=== PATIENT | female | born 1945 | race Caucasian/White ===

== ENCOUNTER 2022-02-14 17:20 | Inpatient (IN) | payer MEDICARE ==
[~2022-02-14] VITALS: Ht 162.6 cm; Wt 60.4 kg
--- NOTE | ~2022-02-14 | DS ---
[facility] [address], [place] [address] Draft ADMISSION DATE: 02/14/2022 DISCHARGE DATE: 02/21/2022 REASON FOR ADMISSION: This 77-year-old white woman is from [place], [place], has numerous medical problems most dominantly those related to underlying COPD. She has not previously been home oxygen-dependent. The patient was visiting her son in the [place] area and had the onset of cough that was persistent with sudden left-sided abdominal pain and ultimately extreme dyspnea. The patient was evaluated in the emergency room by Dr. Andujar showing her to have on chest x-ray a sizable pneumothorax. She is admitted for further action and care. PERTINENT PHYSICAL EXAMINATION: GENERAL: Showed a thin white woman, who is chronically ill. VITAL SIGNS: O2 saturation on room air was 95% with 2 L nasal cannula oxygen. NECK: She had no cervical adenopathy or thyromegaly or jugular venous distention. No tracheal deviation. CHEST: Shows diminished breath sounds on the left side. ABDOMEN: Nondistended. EXTREMITIES: Showed mild clubbing without cyanosis. LABORATORY STUDIES: Showed a white count of 6.4, hematocrit 39.3, platelets 303,000. Chem profile was normal. HOSPITAL COURSE: She was noted to have a very large left spontaneous pneumothorax. No doubt related to rupture of bleb. She underwent expansion of the lung with a pigtail 14-Cook Islander catheter placed by the emergency room physician. I assumed her care and admission to the hospital was undertaken. She had an impressively persistent and blowing air leak consistent with bronchopleural fistula initially. She was maintained with 20 cm of suction on her atrium Pleur-evac type device as well as supplemental oxygen. By the following day, her chest still showed air leak, but not nearly as much as before. A CT scan of the chest was to assess for bleb burden and whether or not the lung was fully expanded as plain x-ray showed possible tiny apical pneumothorax. In taking patient off her suction, her CT scan did show a sizable pneumothorax; with the chest x-ray repeated, the lung was well-expanded, however. The patient had an episode of significant shortness of breath and a rapid response team PATIENT NAME: SASHA MCFARLAND DISCHARGE SUMMARY DATE OF : 43 REPORT #: [id number] PHYSICIAN: PETE GRIFFITH MD PCP: NO PRIMARY CARE PHYSICIAN REPORT IS CONFIDENTIAL AND NOT TO BE RELEASED WITHOUT AUTHORIZATION [facility] [address] [place] [id number] Draft was called, confirming that the patient had desaturations requiring quite a bit of additional supplemental oxygen. On that basis, she was transferred to the intensive care unit and consultation was undertaken with the hospitalist. A chest x-ray that was performed showed no evidence of pneumothorax, though she did have a persistent air leak, which was not large. She was treated with Lasix, though she did not have pulmonary edema per se. Her BNP was not excessively elevated. She did respond to Vapotherm oxygen supplementation. Avoidance of positive-pressure ventilation was deemed advisable if possible, so as to avoid worsening of air leak. The patient has an extensive distant smoking history, but has not smoked in many years. She was additionally given hydrocortisone 100 mg IV. It was thought probable that she had mucus plugging causing acute respiratory distress, which cleared with the aforementioned maneuvers. Soon thereafter, she began having less of an air leak, good expansion of the lung and ultimately the air leak discontinued. CT scan of the chest did not show neoplasm, but did confirm COPD findings. She had progressive improvement and the chest tube was found to have no air leak ultimately to be actually nonfunctional and ultimately was removed. Post extraction, the chest x-rays showed no evidence of recurrent pneumothorax. She was weaned on her supplemental oxygen. She was maintained with prednisone 20 mg p.o. daily and initiated on Bactrim DS antibiotic one p.o. b.i.d., given her underlying disabling COPD. By the day of discharge, she has no evidence of recurrent pneumothorax and is breathing much more comfortably and requires no supplemental oxygen. DISCHARGE MEDICATIONS: 1. Bactrim DS one p.o. b.i.d. #14. 2. Tylenol plain 1000 mg p.o. q.6 hours p.r.n. pain. 3. Benzonatate 100 mg capsule q.8 hours p.r.n. cough. 4. one tablet p.o. b.i.d. as needed for constipation. 5. MiraLAX 17 g pack p.o. daily. 6. Zofran ODT 4 mg tablets sublingual q.6 hours p.r.n. nausea. 7. Sucralfate 1 gram p.o. q.8. before meals and at bedtime. 8. Pantoprazole 40 mg p.o. daily. 9. Prednisone 20 mg p.o. daily. She will maintain her usual bronchodilator and other medication regimen, which includes metoprolol 25 mg p.o. b.i.d., Zithromax 250 mg p.o. PATIENT NAME: SASHA MCFARLAND DISCHARGE SUMMARY DATE OF : 43 REPORT #: [id number] PHYSICIAN: PETE GRIFFITH MD PCP: NO PRIMARY CARE PHYSICIAN REPORT IS CONFIDENTIAL AND NOT TO BE RELEASED WITHOUT AUTHORIZATION [facility] [address], [place] [address] Draft Monday, Monday, and Monday. 10. Amlodipine 10 mg p.o. daily. 11. Cetirizine 10 mg tablets p.o. daily for itching. 12. Albuterol nebulizer (ipratropium-albuterol 3 mL inhalation q.4 hours as needed for wheezing). 13. Fluticasone-salmeterol one inhalation b.i.d. 14. Albuterol 90 mcg 1-2 puffs q.4 hours as needed for wheezing. 15. Aspirin 81 mg p.o. daily. 16. Guaifenesin (Mucinex) 200 mg tablet p.o. b.i.d. 17. Triamcinolone steroid application as needed for itching in the affected area. FOLLOWUP PLAN: She will return to see her usual physician in [place], [place] and has a Pulmonology appointment scheduled for the coming week. She is instructed not to go to altitudes at 10,000 feet or higher on the basis of her previous pneumothorax. She will see her usual primary care physician, Dr. Leandra Vega in the [place] area. DISCHARGE DIAGNOSIS: 1. Left spontaneous near-complete left pneumothorax, sudden-onset requiring emergency 14-Cook Islander pigtail catheter. 2. Postprocedure persistent air leak (resolved). 3. 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 No evidence of neoplasm on CT scan. 4. Hypertension. 5. Constipation. MD CRIS Haley/MODL /[id number] cc: MD Wilder [place] Copies: PATIENT NAME: SASHA MCFARLAND DISCHARGE SUMMARY DATE OF : 43 REPORT #: [id number] PHYSICIAN: PETE GRIFFITH MD PCP: NO PRIMARY CARE PHYSICIAN REPORT IS CONFIDENTIAL AND NOT TO BE RELEASED WITHOUT AUTHORIZATION [address] [address] [facility] ~ PATIENT NAME: SASHA MCFARLAND DISCHARGE SUMMARY DATE OF : 43 REPORT #: [id number] PHYSICIAN: PETE GRIFFITH MD PCP: NO PRIMARY CARE PHYSICIAN REPORT IS CONFIDENTIAL AND NOT TO BE RELEASED WITHOUT AUTHORIZATION
[2022-02-14] MEDS ORDERED: METOPROLOL TART25 MG PO (18:53)
[2022-02-14] MEDS ORDERED: AZITHROMYCIN250 MG PO (18:54)
[2022-02-14] MEDS ORDERED: ATORVASTATIN CA40 MG PO (18:54)
[2022-02-14] MEDS ORDERED: AMLODIPINE BESY10 MG PO (18:55)
[2022-02-14] MEDS ORDERED: BUDESONIDE0.5 MG/2 M INH (18:55)
[2022-02-14] MEDS ORDERED: SPIRIVA18 MCG INH (18:55)
[2022-02-14] MEDS ORDERED: IPRAT-ALBUT 0.5-3 ML INH (18:56)
[2022-02-14] MEDS ORDERED: ZYRTEC10 MG PO (18:56)
--- NOTE | 2022-02-14 20:10 | NUR ---
Patient to the medical floor at this time, a&ox4. Patient reports 10/10 left sided rib pain. Admin toradol 30mg IV and dilaudid 0.5mg at this time. Patient on 2L oxygen per nc, respirations 30/min. Left chest tube to continuous wall suction, notable air leak. Per ER dept there was an air leak when chest tube was placed in ED. Patient provided with warm pack per her request. HOB elevated at this time. Patient oriented to room and call light. Encouraged patient to call staff if she has needs. Call light within reach.
--- NOTE | 2022-02-15 00:11 | NUR ---
Admin dilaudid 0.5mg IV for reports of 10/10 left rib pain.
--- NOTE | 2022-02-15 02:58 | NUR ---
ADMINISTERED PAIN MEDICATION FOR SEVERE PAIN, 0.5MG DILAUDID IV. PATIENT SITTING AT 90 DEGREE ANGLE. PATIENT REPORTS PAIN 9/10 ON PAIN SCALE. STATES " I JUST DON'T FEEL LIKE I CAN TAKE DEEP BREATHS". VS WNL. LIGHTS DIM. CHEST TUBE 100 CONTINIOUS SUCTION, WITH DRY SUCTION CONTROL AT NEGATIVE 20, CONSIDERABLE AIR LEAK NOTED, HOWEVER ROSSY GORMAN REPORTED DR. GRIFFITH AWARE. NO DRAINAGE NOTED IN THE COLLECTION CHAMBER.
--- NOTE | 2022-02-15 05:54 | NUR ---
PATIENT HAS CHEST TUBE TO LEFT SIDE. NOTED SUCTION -20 CMH20, AT 100 CONTINIOUS SUCTION. LEAK PRESENT, DR. GRIFFITH AWARE. NOTED 10 ML OF DRAIANGE INTO COLLECTION CHAMBER. PATIENT NEEDING 0.5 MG DILAUDID PRN FOR BREAKTHRU PAIN, ESPECIALLY WITH ACTIVITY. PATIENT ABLE TO GET UP TO BSC TO URINATE. INCREASED OXYGEN TO 4L WITH ACTIVITY TO KEEP SATURATIONS >90% THEN TITRATED BACK TO 2L NC WITH REST. ADMINISTERED PAIN MEDICATION PER JUN. CALLS NALDO. [id number].
--- NOTE | 2022-02-15 07:25 | NUR ---
REPORT FROM MARIO GARCIA RN
--- NOTE | 2022-02-15 07:53 | NUR ---
MORNING ASSESSMENT COMPLETE. PATIENT IS RESTING IN BED, LEFT CHEST TUBE INTACT, 100MMHG OF SUCTION, 5ML OF SEROSANG DRAINAGE IN ATRIUM. PATIENT RATES PAIN 5/10, AND IS IMPROVED AFTER MEDICATIONS FROM WATERWORKS OPERATOR. PATIENT DENIES OTHER NEEDS AT THIS TIME.
--- NOTE | 2022-02-15 09:20 | NUR ---
MORNING MEDICATIONS GIVEN, VITALS DONE.
--- NOTE | 2022-02-15 09:46 | NUR ---
PATIENT GIVEN 0.5MG OF IV DILAUDID FOR 7/10 LEFT CHEST TUBE PAIN.
--- NOTE | 2022-02-15 13:09 | NUR ---
PATIENT GIVEN 1G OF PO TYLENOL FOR 4/10 PAIN, IS SITTING UP IN BED TO EAT LUNCH. PATIENT DENIES OTHER NEEDS AT THIS TIME.
--- NOTE | 2022-02-15 13:23 | NUR ---
DR. GRIFFITH IN TO SEE PATIENT.
[2022-02-15] MEDS ORDERED: FLUTICASONE-SA1 EAC4 INH (13:57)
[2022-02-15] MEDS ORDERED: VENTOLIN HFA18 GM INH (14:39)
[2022-02-15] MEDS ORDERED: LO-DOSE ASPIRIN81 MG PO (15:17)
[2022-02-15] MEDS ORDERED: TRIAMCINOLONE A15 G3 TOP (15:18)
[2022-02-15] MEDS ORDERED: MUCINEX1200 MG PO (15:18)
--- NOTE | 2022-02-15 15:19 | NUR ---
MED REC COMPLETE
--- NOTE | 2022-02-15 16:34 | NUR ---
PATIENT IS RESTING IN BED, CONTINUES TO REPORT HER PAIN IS 4/10, PATIENT IS GOING TO CT AT THIS TIME.
--- NOTE | 2022-02-15 17:54 | NUR ---
PATIENT IS RESTING IN BED AFTER GOING FOR CHEST CT. PATIENT IS ON 3L TO MAINTAIN 92%. 12 ML OF SEROSANG DRAINAGE NOTED TO I/O. PATIENT REPORTS POOR APPETITE AND DOES NOT WANT TO EAT DINNER. SON IS IN ROOM VISITING PATIENT.
--- NOTE | 2022-02-15 19:38 | NUR ---
REPORT RECEIVED FROM SHERIF ABRAMS. pt RESTING IN BED. CHEST TUBE SECURE, IN PLACE TO SUCTION. 3L OXYGEN BY NC IN PLACE, SPO2 91-92%. pt DENIES ANY PAIN. IVF INFUSING WNL. CALL LIGHT IN REACH. NO REQUESTS. FAMILY IN ROOM.
--- NOTE | 2022-02-15 20:36 | EKG ---
[facility] [address] [facility] [place] [address] Signed Sinus tachycardia with fusion complexes Low voltage QRS Nonspecific ST and T wave abnormality Abnormal ECG No previous ECGs available Confirmed by BRITTANY COMBS MD ([id number]) on 02/15/2022 8:36:35 PM Electronically Signed By: BRITTANY COMBS MD 02/15/222035 PATIENT NAME: SASHA MCFARLAND Electrocardiogram DATE OF : 43 PHYSICIAN: BRITTANY COMBS MD REPORT #: [id number] REPORT IS CONFIDENTIAL AND NOT TO BE RELEASED WITHOUT AUTHORIZATION
--- NOTE | 2022-02-15 23:50 | NUR ---
CHECKED ON pt. RESTING IN BED WITH EYES CLOSED, HOB ELEVATED. SPO2 92% WITH CPOX, 3L OXYGEN BY NC IN PLACE. CHEST TUBE TO WALL SUCTION ON.
--- NOTE | 2022-02-16 00:32 | NUR ---
PATIENT CALLED TO USE THE RESTROOM. SBA TO BEDSIDE COMMODE. PATIENT C/O PAIN AND REQUESTED MEDS. PRIMARY RN LEATHA NOTIFIED. PATIENT IS BACK IN BED. RN WAS WITH PATIENT. CRACKERS PROVIDED.
--- NOTE | 2022-02-16 00:33 | NUR ---
pt UP TO BSC WITH ABILIO HERMAN ASSIST. BACK IN BED, RATES PAIN 9/10 IN LEFT SIDE. PRN PAIN MEDICATION ADMINISTERED. pt PROVIDED WITH SNACK OF CRACKERS. CHEST TUBE TO WALL SUCTION IN PLACE. CALL LIGHT IN REACH.
--- NOTE | 2022-02-16 01:56 | NUR ---
CPOX ALARMING, pt SCRATCHING NOSE, SPO2 WNL WITH 3L OXYGEN BY NC IN PLACE. pt DENIES ANY NEEDS. IVF INFUSING WNL. CHEST TUBE TO SUCTION IN PLACE. CALL LIGHT IN REACH.
--- NOTE | 2022-02-16 03:55 | NUR ---
pt RESTING IN BED WITH HOB ELEVATED. CHEST TUBE TO WALL SUCTION. NO DISTRESS NOTED. SPO2 WNL, CPOX IN PLACE.
--- NOTE | 2022-02-16 05:57 | NUR ---
CALL LIGHT ANSWERED. SBA TO BSC FOR VOID AND BACK TO BED. pt RATES PAIN 10/10 IN LEFT CHEST WALL. PRN TYLENOL AND DILAUDID ADMINISTERED. IVF INFUSING WNL. ASSESSMENT COMPLETE. EXPIRATORY WHEEZES AUSCULTATED THROUGHOUT ALL LOBES. CHEST TUBE IN PLACE TO WALL SUCTION, NO CREPITUS NOTED. CALL LIGHT IN REACH.
--- NOTE | 2022-02-16 07:19 | NUR ---
Report from Zachary Templeton RN. Chest tube dressing intact. No leak noted at this time. Requesting nebulizer. RT notified.
--- NOTE | 2022-02-16 08:16 | NUR ---
SITTING UP IN BED. ASSESSMENT COMPLETED. PRN GIVEN FOR PAIN. CHEST TUBE REMAINS IN PLACE ON SUCTION. SMALL AMOUNT OF SEROSANGUINOUS DRAINAGE NOTED AT THIS TIME. CALL LIGHT IN REACH. AM MEDICATIONS ADMINISTERED. ASSIST TO BSC, CONTINENT OF URINE. RETURNS TO BED.
--- NOTE | 2022-02-16 10:05 | NUR ---
CHEST TUBE REMOVED FROM SUCTION SO PATIENT MAY GO TO X-RAY. REMAINS WITHOUT SIGNS OF RESPIRATORY DISTRESS NOTED.
--- NOTE | 2022-02-16 10:34 | NUR ---
Return from radiology. Chest tube replaced to suction. Painful at this time. See EMAR. Assist to BSC, continent of urine. Assist back into bed. IV fluids restarted.
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
--- NOTE | 2022-02-16 12:22 | NUR ---
Awake in bed, nebulizer on at this time.
--- NOTE | 2022-02-16 13:22 | NUR ---
Patient continues to have a chest tube inplace.The Plan is to go home with daughter here in [place] and Home to [place] in a couple weeks.
--- NOTE | 2022-02-16 14:50 | NUR ---
Patient up to BR at this time. Rates pain 10/10 when returns to bed, see EMAR. Encouraged to use BSC rather than BR in the future to prevent pain and decrease work of breathing. Verbalizes understanding.
--- NOTE | 2022-02-16 17:24 | NUR ---
Chest tube remains in place, 45 mL serosanguinous drainage through the day. CXR completed today. Patient remains on 3L/min per NC, using BSC to void. Pain controlled with oral and IV analgesics. No leak noted to chest tube today.
--- NOTE | 2022-02-16 17:58 | NUR ---
PT IN BED. VITALS AND IS AND OS COMPLETE. NO FURTHER NEEDS. CALL LIGHT WITHIN REACH.
--- NOTE | 2022-02-16 18:46 | NUR ---
Episode of increased pain. See EMAR. Chest tube dressing remains intact, no leak noted at this time or during painful event. Oxygen increased to 4L/min per NC from 3L/min per NC due to hyperventilation and decreased oxygen saturation while in pain. O2 sat to 88% on 3L/min. After oxygen increased, sats 92%. Will reassess to decrease O2 after patient's pain is better controlled. Encouraged to slow breaths while this nurse in room, does decrease rate, but shallow respirations noted. Encouraged to take deeper breaths. Son at bedside at this time. Denies other needs. Call light in reach.
--- NOTE | 2022-02-16 19:30 | NUR ---
REPORT RECIEVED FROM SHERIF ARROYO. SPO2 92% WITH 4L OXYGEN BY NC IN PLACE. NO AIR LEAK NOTED IN CHEST TUBE. CHEST TUBE TO SUCTION. IVF INFUSING WNL. CALL LIGHT IN REACH. SON VISITING IN ROOM.
--- NOTE | 2022-02-16 20:06 | NUR ---
pt WAS MOVING ARM AND IV FELL OUT. PRESSURE DRESSING APPLIED. PRIMARY RN UPDATED.
--- NOTE | 2022-02-16 20:25 | NUR ---
NEW IV STARTED IN RIGHT FOREARM, 22GA. PRIMARY RN IN ROOM.
--- NOTE | 2022-02-16 20:30 | NUR ---
pt RESTING IN BED, RATES PAIN 5/10 IN LEFT SIDE. PRN TYLENOL ADMINISTERED AT THIS TIME. ASSESSMENT COMPLETE. LUNG SOUNDS COARSE, pt COUGHING. RT PHONED FOR BREATHING TREATMENT REQUESTED. SPO2 WNL WITH 4L OXYGEN BY NC IN PLACE. NO LEAK IN CHEST TUBE NOTED, TO SUCTION. DRESSING INTACT. IVF INFUSING WNL. CALL LIGHT IN REACH.
--- NOTE | 2022-02-16 22:31 | NUR ---
CALL LIGHT ANSWERED. SBA TO BEDSIDE COMMODE AND BACK TO BED. PATIENT C/O PAIN AND REQUESTED MEDICATION. PRIMARY RN NOTIFIED.
--- NOTE | 2022-02-16 22:43 | NUR ---
pt BACK IN BED AFTER UP TO BSC. NO AIR LEAK NOTED IN CHEST TUBE. pt RATES PAIN 7-8/10 IN LEFT SIDE AT CHEST TUBE. PRN PAIN MEDICATION ADMINISTERED. pt HAS NO ADDITIONAL REQUESTS. IVF INFUSING WNL. CALL LIGHT IN REACH.
--- NOTE | 2022-02-16 23:36 | NUR ---
pt RESTING IN BED WITH EYES CLOSED, HOB ELEVATED. NO AIR LEAK NOTED IN CHEST TUBE. SPO2 WNL, 4L OXYGEN BY NC IN PLACE.
--- NOTE | 2022-02-17 01:08 | NUR ---
call light answered. sba to bedside commode and back to bed. no other needs at this time.
--- NOTE | 2022-02-17 01:20 | NUR ---
pt UP TO BSC FOR VOID. BACK IN BED, pt GUARDED WITH BREATHING, HOLDING BREATH DUE TO PAIN. ASSESSMENT COMPLETE. LUNG SOUNDS COURSE, SPORADIC WHEEZE AUSCULTATED. 4L OXYGEN BY NC IN PLACE. NO LEAK NOTED IN CHEST TUBE, TO WALL SUCTION. RT PHONED FOR PRN BREATHING TREATMENT. PRN PAIN MEDICATIONS ADMINISTERED. ASSISTED pt TO REPOSITION HIGHER IN BED. CALL LIGHT IN REACH.
--- NOTE | 2022-02-17 04:09 | NUR ---
CHECKED ON pt. RESTING IN BED WITH EYES CLOSED. 4L OXYGEN BY NC IN PLACE. NO DISTRESS NOTED.
--- NOTE | 2022-02-17 06:20 | NUR ---
PT TRANSFERED TO CCU WITH PRIMARY RN, VENEREAL DISEASE INVESTIGATOR, ON , CHEST TUBE SECURED.
--- NOTE | 2022-02-17 06:35 | NUR ---
IN pt ROOM FOR VS. pt DENIES SOB, SPO2 NOTED 84% ON 4L OXYGEN BY NC. O2 TITRATED TO 6L OXYGEN BY NC, SPO2 CONTINUES TO DROP TO 69%. CHEST TUBE SITE AND TUBE ASSESSED, NO AIR LEAK NOTED. OXYMASK APPLIED AT 15L OXYGEN OVER NC. RAPID RESPONSE CALLED. AIRCRAFT MECHANIC ARMAMENT RN AND RT IN ROOM. SPO2 INCREASES TO 94-96% AFTER BREATHING TREATMENT AND 14L OXYGEN IN PLACE. MD PHONED. IMAGING IN ROOM FOR CHEST XRAY. PATIENT TRANSFERRED TO CCU. SON NOTIFIED.
--- NOTE | 2022-02-17 06:42 | NUR ---
IN TO SEE PATIENT. VERBAL ORDERS FOR HOSPITALIST CONSULT AND STAT LABS. RT IN ROOM; VAPOTHERM 30L 70% Fi02. RR 24. Sp02 92-98% PATIENT ALERT. REPORTS FEELING PAIN IN HER LUQ/LEFT CHEST. VS STABLE.
--- NOTE | 2022-02-17 07:30 | NUR ---
REPORT RECEIVED FROM NIGHT RN - PT CURRENTLY ON VAPO THERM AT 30L @70%. SITTING AT BEDSIDE.
--- NOTE | 2022-02-17 08:00 | NUR ---
SN AND RN IN ROOM TO ROUND ON PT. PT IN BED SITTING UP WITH TV ON AND SON IN ROOM. PT COUGHING AND REPORTING PAIN WHILE COUGHING AT A 7 OUT OF 10. PT IS RECIEVING OXYGEN 30L AT 70% VAPOTHERM AND SPO2 IS CURRENTLY 96%. ASSESSMENT AND VITALS TAKEN. PT REPORTS NEED TO URINATE AND IS EDUCATED ON PURE WHICK AND COMMUNICATES UNDERSTANDING AND WILLINGNESS TO USE THIS DEVICE. PT HAS NO OTHER NEEDS AT THIS TIME AND CALL LIGHT IS IN REACH.
--- NOTE | 2022-02-17 08:19 | NUR ---
ASSESSMENT COMPLETE - RT AT BEDSIDE ADMINISTERING DUONEB, WET PRODUCTIVE COUGH THAT PT IS HAVING DIFFICULT TIME CLEARING. PRN IV PAIN MEDICATION PROVIDED FOR 7/10 LEFT CHEST PAIN. LUNG SOUNDS COURSE AND WET THROUGHOUT, DIM IN LEFT LOWER LOBE. CHEST TUBE IN PLACE AND SECURE - CREPITIS NOTED AROUND INSERTION SITE AND UP TO CLAVICAL/ MID STERNUM - MD AND RT AWARE.
--- NOTE | 2022-02-17 10:37 | NUR ---
SN AND NURSE IN ROOM WITH PT TO ADMINISTER 0900 MEDICATIONS AND START A SECONDARY IV. PT SITTING UP IN BED EATING BREAKFAST WITH SON IN ROOM. PERIPHERAL IV ACCESS NEEDED A SECONDARY. TWO ATTEMPTS BY THIS STUDENT, RN ATTEMPTED ONCE, AND ANOTHER RN IN ROOM TO START A 20 GUAGE IV IN LEFT WRIST. PATIENT TOLERATED VERY WELL. PT WATER GLASS REFILLED AND PT REPORTS NO OTHER NEEDS AT THIS TIME. CALL LIGHT IS IN REACH.
--- NOTE | 2022-02-17 11:35 | NUR ---
PER AM MEETING PATIENT TO REMAIN IN CCU. NO CHANGE IN DISCHARGE PLAN AT THIS TIME.
--- NOTE | 2022-02-17 13:00 | NUR ---
RN IN ROOM TO ASSESS PT - PT REQUESTS PRN NEB TX FOR SOB AND DYSPNEA. VAPOTHERM TITRATED TO 20/70 TO RECOVER SP02 DESAT TO 80'S. RT AT BEDSIDE, FLUTTER VALVE USE DEMONSTRATED AND PT ABLE TO CLEAR SMALL SECREATIONS. IV DILAUDID ADMINISTERED FOR PAIN RELIEF FROM COUGHING SPASMS. CHEST TUBE PATENT, SMALL SEROUSANG FLUID NOTED IN DRAIN TUBE. CREPITIS REMAINS UNCHANGED.
--- NOTE | 2022-02-17 14:28 | NUR ---
SN IN ROOM WITH PT. PT IS SITTING UPRIGHT IN BED IN HIGH VILLALOBOS'S POSITION. PT IS COUGHING UNPRODUCTIVELY AND STILL STATES PAIN UPON COUGHING. EDUCATION ON SPLINTING TO REDUCE PAIN WHILE COUGHING IS REINFORCED AND PT VERBALIZES THAT SPLINTING METHOD DOES HELP REDUCE THAT PAIN. THIS SN PERFORMS ASSESSMENT AND TAKES VITALS WHILE PT ENGAGES IN CONVERSATION. PT STATES NO OTHER NEEDS AT THIS TIME. CALL LIGHT IS WITHIN REACH AND PT VERBALIZES THAT SHE WILL USE IT IF NEEDED.
--- NOTE | 2022-02-17 15:46 | NUR ---
RN IN ROOM TO ROUND ON PT - PT STATES PAIN IS IMPROVED, COUGHING IMPROVED. CHEST TUBE PATENT - NO CHANGES IN LUNG SOUNDS. SP02 96% ON VAPOTHERM. CALL LIGHT AT SIDE, PT DENIES NEEDS.
--- NOTE | 2022-02-17 16:18 | NUR ---
SN IN ROOM WITH PT. PT SITTING UP IN BED IN HIGH VILLALOBOS'S POSITION ON PHONE. PT IS ABLE TO HOLD A CONVERSATION WITH SOME COUGHING. PAIN ON COUGHING IN LEFT BREAST RATING AT A 4 OUT OF 10. PT STATES SHE DOES NOT NEED MORE DILAUDID AT THIS TIME. PT DOES NOT HAVE URINARY OUTPUT VIA PURE WICK AT THIS TIME BUT PULL UP AND PAD UNDERNEATH PT ARE WET. ZAID AND PULL UP REMOVED AND REPLACED. PT STATES SHE HAS NO OTHER NEEDS AT THIS TIME AND CALL LIGHT IS WITHIN REACH.
--- NOTE | 2022-02-17 18:18 | NUR ---
RN IN ROOM TO ADMINISTER PAIN MEDICATION - PT RATES PAIN 7/10 IN LEFT CHEST, GAURDED COUGH AND INCREASING SOB. RT CALLED AND PRN NEB INITIATED. SURGEON AT BEDSIDE ROUNDING - CXR ORDERED.
--- NOTE | 2022-02-17 18:28 | NUR ---
SN AND RN IN ROOM WITH PATIENT. PT SITTING IN HIGH VILLALOBOS'S WITH DINNER IN FRONT OF HER. PT STATES THAT PAIN HAS GONE BACK UP TO A 7 OUT OF 10 AND REQUESTED HER PRN DILAUDED. PT ALSO WANTED PRN DUONEB TREATMENT. PRN PAIN MED GIVEN. RT CALLED AND IN ROOM TO PERFORM TREATMENT. PT REPOSITIONED IN BED AND PROPED UP WITH PILLOWS. FOLDED BLANKET GIVEN TO REPLACE PILLOW AND ALLOW PT TO HAVE A FIRMER SURFACE TO SPLINT WITH. PT REQUESTS A CUP OF COFFEE AND REPORTS SHE IS FINISHED WITH DINNER. PT STATES NO OTHER NEEDS AT THIS TIME AND CALL LIGHT IS WITHIN REACH
--- NOTE | 2022-02-17 19:08 | NUR ---
THIS RN HAS REVIEWED ALL ENTRIES MADE BY STUDENT RN TODAY ON THIS SHIFT AND AGREE WITH ALL ITEMS CHARTED.
--- NOTE | 2022-02-17 20:10 | NUR ---
PATIENT RESTING IN BED. RATES PAIN 3/10 TO LEFT CHEST. CHEST TUBE DRESSING CLEAN DRY AND INTACT. NO AIR BUBBLES IN CHAMBER. LEFT BREAST HAS A SMALL DRESSING IN PLACE THAT IS CLEAN DRY AND INTACT. PUREWICK IN PLACE. PATIENT DRY. CALL LIGHT IN REACH. EDUCATED ON PAION MEDS AND THE NEED TO ASK WHEN SHE NEEDS. EDUCATED ON IS AND ACCUPELLA.
--- NOTE | 2022-02-17 21:17 | NUR ---
PATIENT CALLED AND STATED THE BED WAS WET. TRACED PUREWICK TUBING AND IT WAS NOT CONNECTED TO SUCTION. BED LINEN AND GOWN CHANGED AND PUREWICK TO SUCTION.
--- NOTE | 2022-02-18 00:17 | NUR ---
PATIENT CALLED AND REQUESTED WARM BLANKETS AND THE HEAT TURNED UP.
--- NOTE | 2022-02-18 01:32 | NUR ---
PATIENT UP TO BEDSIDE COMMODE WITH ELEANOR GORMAN. OXYGEN DEMANDS INCREASED TO 6LPM WHILE UP OUT OF BED AND BACK DOWN TO 4LPM AT REST.
--- NOTE | 2022-02-18 04:26 | NUR ---
PATIENT CALLED TO REQUEST BEDSIDE COMMODE. PATIENT UP WITH SBA FOR CORDS TO BEDSIDE COMMODE. VOIDED URINE. REQUESTED PRN PAIN MEDS ANDS A BREATHING TREATMENT. CONTINUES TO HAVE A COURSE COUGH.
--- NOTE | 2022-02-18 06:53 | NUR ---
PATIENT AMBULATED TO BEDSIDE COMMODE WITH SBA TO VOID.
--- NOTE | 2022-02-18 08:28 | NUR ---
SN AND RN IN PT ROOM FOR MORNING ROUNDS. PT IN BED WITH TELEVISION ON. PT REQUESTS DUONEB TREATMENT AND PAIN MEDICATION AT THIS TIME. PT IS ASSISTED IN REPOSITIONING AND SITTING UP. PT IS COUGHING COARSELY AND REPORTS THAT SHE IS ABLE TO START GETTING THE MUCUS UP SOME. . PRN PAIN MEDS GIVEN AND RT IN ROOM TO PROVIDE DUONEB TREATMENT. IMAGING IN ROOM FOR CHEST XRAY. DR COMBS IN ROOM FOR ROUNDING. PT REQUESTS COFFEE. PT HAS NO OTHER REQUESTS AT THIS TIME. SON IS IN ROOM AND CALL LIGHT IS WITHIN REACH OF PT.
--- NOTE | 2022-02-18 09:20 | NUR ---
SN AND RN IN ROOM WITH PT TO GIVE MORNING MEDS AND PERFORM ASSESSMENT. PT HAD BEEN INFORMED BY DOC THAT CHEST TUBE MAY BE REMOVED TODAY. PT REPORTS USING ACCUPELLA ON THE HOUR AND THAT THE SON IS GOING TO CONTINUE TO MAKE SURE SHE DOES THIS. PT REMAINS ON 4L NC AND ANTIBIOTIC IS RUINNING. PT STATES NO OTHER NEEDS AT THIS TIME AND SAYS SHE WILL CALL IF SHE NEEDS ANYTHING. CALL LIGHT IS WITHIN REACH.
--- NOTE | 2022-02-18 10:23 | NUR ---
PATIENT UP TO [facility] FOR VOID, TOLERATED WELL.
--- NOTE | 2022-02-18 10:32 | NUR ---
PT REQUEST TO USE BEDSIDE COMMODE. COMMUNITY EDUCATION COORDINATOR AND SN IN ROOM TO ASSIST PATIENT TO BEDSIDE COMMODE. PT TOLERATES VERY WELL. AFTER RETURNING TO BED, OXYGEN SET TO 6L NC DUE TO DESAT TO AROUND 88%. PT HAS NO OTHER NEEDS AT THIS TIME AND CALL LIGHT IS WITHIN REACH.
--- NOTE | 2022-02-18 10:45 | NUR ---
SPOKE WITH SASHA GORMAN, PATIENT IS DOING WELL. PER SHERIF BAEZ SHE DOES NOT FEEL THE PATIENT WILL HAVE ANY NEEDS AT DISCHARGE. WILL CONTINUE TO CHECK WITH PATIENT AND STAFF DURING HER VISIT.
--- NOTE | 2022-02-18 11:00 | NUR ---
SN IN ROOM TO TURN OXYGEN TO 4L NC FROM 6L NC DUE TO SATS MAINTAINING AT 96% AFTER RECOVERING FROM GETTING UP TO USE BEDSIDE COMMODE
--- NOTE | 2022-02-18 11:17 | NUR ---
PT SON HAS BEEN AT THE BEDSIDE ALL MORNING. STUDENT NURSE [facility] WORKING WITH PT ALSO THIS AM. PT ATE WELL FOR HER THIS AM, ORAL MEDS AND TAKING NEBS. MEDICATED FOR PAIN DUE TO COUGHING WITH NEB TX'S. .5 DILUDID IVP GIVE WITH NEB TX'S. PT HAS BEEN UP TO THE BATHROOM DID WELL.
--- NOTE | 2022-02-18 11:41 | NUR ---
PT REQUESTED PRN NEB TREATMENTS AND DILAUDID. SHE STATES THAT HER PAIN IS A 9/10 AND IS A "SHARP STABBING PAIN" IN HER LEFT BREAST THAT FEELS "LIKE THERE IS A KNIFE TWISTING IN THERE." RT CALLED AND IN ROOM TO DO DUONEB TREATMENT. PRN PAIN MEDS ADMINISTERED. PT REPORTS NO OTHER NEEDS AT THIS TIME AND CALL LIGHT IS WITHIN REACH.
--- NOTE | 2022-02-18 12:45 | NUR ---
DR GRIFFITH INTO SEE PT AND HE REMOVED CHEST TUBE AT THIS TIME. DRESSING PLACED WAS ADAPTIC GAUZE AND 4 INCH SILK TAPE.
--- NOTE | 2022-02-18 14:18 | NUR ---
pt medicated with dilaudid 0.5mg ivp for neb tx r/t coughing pain. pt O2 sta's remain in the high 80's, DR GRIFFITH NOTIFIED AND DR MENDOZA NOTIFIED AND NEW ORDERS FOR STAT CXR.
--- NOTE | 2022-02-18 14:45 | NUR ---
AFTER CXR OBTAIN PT REMAINS IN A 90 DEGREE UPRIGHT POSITION AND SPO2 REMAINS IN 91% at 6 l's via nc.
--- NOTE | 2022-02-18 16:26 | NUR ---
pt up to bedside commode voided and back to bed, spo2 decreased to the low 84's and then had not recovered after 20 mintutes. RT notified for neb tx and pt repositioned up in bed. still at a 90 degree upright position. pt also medicated with 0.5mg dilaudid ivp at this time.
--- NOTE | 2022-02-18 17:30 | NUR ---
PT SITTING UP AT 90 DEGREES AND EATTING DINNER AT THIS TIME, SPO2 REMAING AT 90 TO 92% ON 8L'S HIGH FLOW O2. PT SON HAS LEFT FOR THE DAY.
--- NOTE | 2022-02-18 17:51 | NUR ---
PTC/O JACOBSEN AT THIS TIME MEDICATED WITH 100MG TYLENOL AT THIS TIME.
--- NOTE | 2022-02-18 18:36 | NUR ---
PT HAD CXR AT THIS TIME, THEN UP TO BSCOMMODE VOIDED AND THEN BACK TO BED C/O SOB, SPO2 88 ON HIGH FLOW, C/O BEING COLD CHECKED TEMP 98.3 ORAL, GAVE WARM BLANKET. PT STATES "I JUST DONT FEEL GOOD" DR MCNAMARA CALLED AND NEW ORDER RECEIVED.
--- NOTE | 2022-02-18 19:05 | NUR ---
REPORT GIVEN TO NIGHT SWHIFT ALL QUESTIONS ANSWERED.
--- NOTE | 2022-02-18 20:17 | NUR ---
PATIENT RESTING IN BED. REPORTS PAIN WITH COUGHING. TESSALON PEARLS AND PRN PAIN MEDS GIVEN. EDUCATED PATIENT ON MEDS. CALL LIGHT IN REACH AND CAN MAKE NEEDS KNOWN.
--- NOTE | 2022-02-18 23:34 | NUR ---
PATIENT CALLED TO USE BEDSIDE COMMODE. REQUESTES A BREATHING TREATMENT. RT CALLED. PATIENT VOIDED. UP INDEPENDENTLY TO BEDSIDE COMMODE. CALL LIGHT IN REACH AND CAN MAKE NEEDS KNOWN.
--- NOTE | 2022-02-19 03:01 | NUR ---
PATIENT AMBULATED TO THE BEDSIDE COMMODE INDEPENDENTLY TO VOID. REQUESTED RT FOR TREATMENT.
--- NOTE | 2022-02-19 03:21 | NUR ---
PATIENT WITH A PRODUCTIVE COUGH AFTER BREATHING TREATMENT. COUGHING UP THICK CLEAR SECRETIONS. WARM BLANKETS PROVIDED.
--- NOTE | 2022-02-19 06:41 | NUR ---
PATIENT RESTING IN BED. OXYGEN REMAINS AT 4LPM VIA NASAL CANULA. RESPIRATIONS EVEN AND UNLABORED. VS STABLE. CALL LIGHT IN REACH AND CAN MAKE NEEDS KNOWN.
--- NOTE | 2022-02-19 07:16 | NUR ---
REPORTS NAUSEA THIS AM. PRN MEDS GIVEN. AMBULATED TO BEDSIDE COMMODE TO VOID.
--- NOTE | 2022-02-19 07:45 | NUR ---
REPORT RECIEVED FROM NIGHT RN - PT RESTING IN BED, STATES SHE DOESENT FEEL GOOD THIS MORNING, ZOFRAN ADMINISTERED BY [facility] RN - WILL CONTINUE TO MONITOR.
--- NOTE | 2022-02-19 09:00 | NUR ---
RN IN ROOM TO ASSESS PT - PT ASSISTED TO BSC - INCREASE WORK OF BREATHING WITH THIS AND 02 DEMAND REQUIRING 4L NC FOR APPROX 10 MIN TO RECOVER. PT REPORTS NAUSEA AND "UPSET STOMACH" THIS AM. PTS GENERAL APPERANCE WORSE THIS AM THAN PREVIOUS SHIFT ASSESSMENTS BY THIS RN. PT SHAKY AND PALE IN FACE. VS WNL. NO SIGN OF INFECTION AT CHEST TUBE WOUND SITE. PT STATES SHE HAS NOT HAD A BM RECENTLY, SUSPECT POSSIBLE NAUSEA R/T CONSTIPATION. NIO BOWEL CARE WILL BE INITIATED. SURGEON AT BEDSIDE TO ROUND ON PT. PT STATES UNDERSTANDING OF POC.
--- NOTE | 2022-02-19 10:43 | NUR ---
RN IN ROOM TO ADMINISTER SCHEDULED MEDICATIONS - PT AWAKE IN BED AFTER CXR. SP02 REMAINS STABLE ON 2L NC. WET NON PRODUCTIVE COUGH NOTED. PT DENIES NEEDS FOR PAIN MEDICATION AT THIS TIME, STATES NAUSEA IS SLIGHTLY IMPROVED.
--- NOTE | 2022-02-19 11:00 | NUR ---
TRANSFER TO COMMODE TO VOID 150 ML OF CLEAR YELLOW URINE. STABLE ON FEET. CONTINUES WITH OCC LOOSE COUGH. WITH ACTIVITY, PATIENT IS MORE SHORT OF BREATH.BACK TO BED W/OO INCIDENT. HOB ELEVATED TO APPROX 45 DEGREES.
--- NOTE | 2022-02-19 12:21 | NUR ---
RN IN ROOM TO ASSESS PT - PT REPORST IMPROVED NAUSEA BUT LUNCH IS NOT APPETIZING AT THIS TIME. DENIES NEED FOR PAIN MEDICATION. WORK OF BREATHING IMPROVED - SP02 94% ON 2L, NOON NEB TX COMPLETE. COUGH REMAINS WET BUT DIFFICULT FOR PT TO CLEAR SECREATIONS. VS WNL.
--- NOTE | 2022-02-19 12:57 | NUR ---
RN IN ROOM TO ASSIST PT TO BSC. SP02 LOWERS TO 90'S ON 2L BUT DOES NOT DESAT BELOW THAT.
--- NOTE | 2022-02-19 13:53 | NUR ---
RN ROUNDING ON PT - RESTING IN BED ASLEEP, RR EVEN AND UNLABORED. VS AT RN STATION WNL. CALL LIGHT AT SIDE.
--- NOTE | 2022-02-19 15:28 | NUR ---
PT RESTING IN BED VISITING WITH SON AND DIL AT BEDSIDE.
--- NOTE | 2022-02-19 16:00 | NUR ---
RN IN ROOM TO ASSESS PT - PT REQUESTS ASSISTANCE TO USE BSC. VOIDING QS. PT REPORTS HEADACHE AND "JITTERY", MORE FREQUENT PVCS NOTED ON HEART MONITOR. SPO2 STABLE ON 2L - DOES NOT DESAT BELOW 90 WITH USING BSC. ENCOURAGED PT TO USE JOSEPH, VERY LITTLE SPUTUM ABLE TO BE CLEARED. LUNGS REMAIN WET AND COURSE THROUGHOUT WITH EXP WHEEZING. FRESH ICE WATER PROVIDED. CALL LIGHT AND FAMILY AT BEDSIDE.
--- NOTE | 2022-02-19 17:30 | NUR ---
MILK PROVIDED FOR PT PER REQUEST - PT EXPRESSES HER FRUSTRATION REGARDING THE FOOD SHE HAS BEEN SERVED DURING VISIT. PT DENIES NEEDS OTHERWISE. CALL LIGHT IN REACH.
--- NOTE | 2022-02-19 18:49 | NUR ---
RN ROUNDING ON PT - RESTING IN BED ASLEEP. VS AT RN STATION WNL. CALL LIGHT AT SIDE.
--- NOTE | 2022-02-19 19:30 | NUR ---
PATIENT RESTING IN BED. CURRENTLY ON ROOM AIR. HAS MILD NAUSEA. SALTINE CRACKERS GIVEN. CALL LIGHT IN REACH AND CAN MAKE NEEDS KNOWN. CONTINUES TO HAVE A PRODUCTIVE COUGH.
--- NOTE | 2022-02-20 02:01 | NUR ---
PATIENT RESTING IN BED WITH EYES CLOSED. RESPIRATIONS EVEN AND UNLABORED. CALL LIGHT IN REACH AND CAN MAKE NEEDS KNOWN. VS STABLE.
--- NOTE | 2022-02-20 02:53 | NUR ---
PATIENT CALLED TO USE BEDSIDE COMMODE. AMBULATED INDEPENDENTLY O COMMODE TO VOID.
--- NOTE | 2022-02-20 06:37 | NUR ---
PATIENT AMBULATED TO BEDSIDE COMMODE TO VOID. CONTINUES TO HAVE A COUGH. CALL LIGHT IN REACH AND CAN MAKE NEEDS KNOWN.
--- NOTE | 2022-02-20 07:29 | NUR ---
report recieved from night rn - pt asleep in bed on side, rr even and unlabored, spo2 91% on 1L. call light at side.
--- NOTE | 2022-02-20 09:00 | NUR ---
RN IN ROOM TO ASSESS PT - MD AT BEDSIDE ROUNDING. PT SITTING UP IN BED, COUGH REMAINS WET AND MOSTLY NON PRODUCTIVE. CORNET USE AND DEEP BREATHING ENCOURAGED. LUNG SOUNDS COURSE THROUGHOUT WITH SCATTERED WHEEZING. PT TRIALED ON ROOM AIR AT THIS TIME, SPO2 MAINTAINING ABOVE 90%. PT REPORTS NAUSEA THIS AM, ZOFRAN ADMINISTERED FOR THIS. PT DENIES WANTING BREAKFAST BUT REQUESTS MILK AND COFFEE. PT AGAIN COMMUNICATES "HOW HORRIBLE" THE FOOD IS SHE IS BEING SERVED. PT DENIES FURTHER NEEDS. CALL LIGHT IN REACH.
--- NOTE | 2022-02-20 10:45 | NUR ---
PT USES CALL LIGHT TO REQUEST PRN NEB TX. PT AMBULATES TO BATHROOM TO VOID WITH STANDBY ASSIST ON 2L NC. PT COMPLAINS OF SOME DIZZINESS WITH THIS BUT DOES NOT DESAT BELOW 90%. PT BACK TO CHAIR TO DO NEB TX WITH RT. ROOM TIDIED AND BED LINENS CHANGED.
--- NOTE | 2022-02-20 11:48 | NUR ---
PT REMAINS UP IN CHAIR, SOB IMPROVED WITH NEB TX. DENIES NEEDS AT THIS TIME.
--- NOTE | 2022-02-20 13:00 | NUR ---
RN IN ROOM TO ASSESS PT - SP02 REMIANS >90% ON ROOM AIR, LUNG SOUNDS REMAIN COURSE THROUGHOUT WITH MINIMAL SPUTUM PRODUCED. PT TRANSFERED TO MS ROOM TO SHOWER VIA WHEELCHAIR - TOLERATED ACTIVITY ON ROOM AIR WITH MODERATE SOB. PT DENIES PAIN EXCEPT WITH COUGHING, DOES NOT WANT TO TAKE IBP R/T NAUSEA. PTS FLUID INTAKE IS GENEROUS, HOWEVER PT DOES NOT WANT TO EAT FOOD OFFERED/AVAILABLE AT THIS TIME.
--- NOTE | 2022-02-20 15:20 | NUR ---
RT IN ROOM FOR NEB TX. PT WEANED TO ROOM AIR - SP02 > 90%. SON AT BEDSIDE VISITING.
--- NOTE | 2022-02-20 16:28 | NUR ---
RN ROUNDING ON PT - PT SITTING UP IN BED EATING JELLO AND VISITING WITH SON. SPO2 ON ROOM AIR CURRENTLY 90%. CALL LIGHT IN REACH.
--- NOTE | 2022-02-20 16:52 | NUR ---
PT AMBULATES STEADY ON FEET TO BATHROOM ON ROOM AIR, SP02 STABLE. PT BACK TO BED AND PROVIDED CRACKERS. DENIES NEED FOR PAIN MEDICINE AT THIS TIME. CALL LIGHT IN REACH.
--- NOTE | 2022-02-20 18:05 | NUR ---
RN ROUNDING ON PT - PT SITTING UP IN BED WATCHING TV, REMAINS STABLE ON ROOM AIR. DENIES NEEDS AT THIS TIME. ICE WATER PROVIDED AND FRUIT OFF DINNER TRAY, ALL OTHER PARTS OF DINNER TRAY REFUSED. CALL LIGHT AT SIDE.
--- NOTE | 2022-02-20 20:18 | NUR ---
PATIENT RESTING IN BED. WATCHING T.V. PROVIDED JELLO AND JUICE. REPORTS NASUEA IS RESOLVED. DENIES PAIN OR SOB. CALL LIGHT AND BELONGINGS IN REACH. CONTINUES TO HAVE A PRODUCTIVE COUGH. ENCOURAGED USE OF ACAPELLA.
--- NOTE | 2022-02-20 21:03 | NUR ---
PATIENT AMBULATED TO BATHROOM INDEPENDENTLY.
--- NOTE | 2022-02-21 01:49 | NUR ---
PATIENT RESTING IN BED WITH EYES CLOSED. SATS REMAIN > 88% ON ROOM AIR. RESPIRATIONS EVEN AND UNLABORED. CALL LIGHT IN REACH.
--- NOTE | 2022-02-21 02:08 | NUR ---
PATIENT UP TO BATHROOM INDEPENDENTLY TO VOID.
--- NOTE | 2022-02-21 08:15 | NUR ---
RN IN ROOM TO ASSESS PT AND DELIVER BREAKFAST TRAY - PT SP02 REMAINS STABLE ON ROOM AIR. PT LUNG SOUNDS MORE OPEN AND WHEEZING AFTER NEB TX. PT REPORTS HEADACHE REMAINS - TYLENOL ALREADY ADMINISTERED, PT STATES SHE DOES NOT WANT IBP ON STOMACH. PT DENIES FURTHER NEEDS, CALL LIGHT IN REACH.
--- NOTE | 2022-02-21 10:00 | NUR ---
RN IN ROOM TO ADMINISTER SCHEDULED MEDICATION - PT REPORTS HEADACHE RESOLVED. REPORTS MILD NAUSEA FROM COUGH. SP02 >90% ON ROOM AIR. PT REPORTS SMALL HARD BOWEL MOVEMENT THIS AM, INDEPENDENT IN BATHROOM. 20% OF BREAKFAST CONSUMED.
--- NOTE | 2022-02-21 11:29 | NUR ---
RN IN ROOM ROUNDING ON PT - PT APPEARS FATIGUED FROM COUGHING, NON PRODUCTIVE THIS AM. PRN TESSALON JONELLE ADMINISTERED. PT DENIES FURTHER NEEDS, CALL LIGHT IN REACH.
--- NOTE | 2022-02-21 11:59 | NUR ---
PT PROVIDED CRACKERS AND JELLO FOR LUNCH PER REQUEST. CALL LIGHT AT SIDE.
--- NOTE | 2022-02-21 13:45 | NUR ---
RN ROUNDING ON PT - PT RESTING IN BED ON PHONE, COUGH DECREASED IN FREQUENCY AND SEVERITY. CALL LIGHT AT SIDE.
--- NOTE | 2022-02-21 13:59 | NUR ---
PER AM MEETING AND DISCUSSION WITH JANA GORMAN, PATIENT TO DISCHARGE TODAY. PATIENT SON DENIS TO TRANSPORT WHEN PATIENT IS READY.
--- NOTE | 2022-02-21 14:38 | NUR ---
RN IN ROOM TO ASSESS PT - PT REQUESTS PRN TYLENOL AND IBP FOR HEADACHE AND LEFT CHEST PAIN. LUNG SOUNDS REMAIN COURSE AND EXP WHEEZE. NO NEED FOR SUPPLEMENTAL 02 AT THIS TIME TO SUSTAIN SP02 > 90%. PT INDEPENDENT TO BATHROOM AND REPORTS SMALL HARD STOOL.
[2022-02-21] MEDS ORDERED: SULFAMETHOXAZO1 EAC1 PO (15:16)
[2022-02-21] MEDS ORDERED: HEALTHYLAX17 GM PO (15:17)
[2022-02-21] MEDS ORDERED: BENZONATATE100 MG PO (15:17)
[2022-02-21] MEDS ORDERED: ACETAMINOPHEN500 MG PO (15:17)
[2022-02-21] MEDS ORDERED: STIMULANT LAXA1 EACH PO (15:17)
[2022-02-21] MEDS ORDERED: PANTOPRAZOLE SO40 MG PO (15:18)
[2022-02-21] MEDS ORDERED: PREDNISONE20 MG PO (15:18)
[2022-02-21] MEDS ORDERED: ONDANSETRON ODT4 MG SL (15:18)
[2022-02-21] MEDS ORDERED: SUCRALFATE1 GM PO (15:18)
== END 2022-02-21 17:00 | disposition home or self-care (01) | DRG 199 ==
LOC: ED 17:20 → EDBD 17:21 → ED 17:21 → MS 18:34 → CCU 02-17 06:20
PROVIDERS: ADMIT Surgery; ATTEND Surgery
PROC: 0W9B30Z Drainage of Left Pleural Cavity with Drainage Device, Percutaneous Approach (ICD-10-PCS; principal; 2022-02-14)
DX: J93.83 Other pneumothorax (principal); J96.01 Acute respiratory failure with hypoxia; J43.9 Emphysema, unspecified; I10 Essential (primary) hypertension; K59.00 Constipation, unspecified; Z20.822 Contact with and (suspected) exposure to COVID-19; Z90.49 Acquired absence of other specified parts of digestive tract; Z90.710 Acquired absence of both cervix and uterus; Z85.3 Personal history of malignant neoplasm of breast; Z79.899 Other long term (current) drug therapy; Z88.5 Allergy status to narcotic agent; Z88.0 Allergy status to penicillin; Z79.82 Long term (current) use of aspirin
CPT/HCPCS: 31720; 32551; 36415; 71045; 71046; 71260; 80048; 80053; 83735; 83880; 84484; 85025; 85379; 93005; 93010; 94640; 94660; 94668; 94760; 94762; 94799; 99285-25; A9270; C9803; J0696; J1170; J1644; J1720; J1885; J1940; J2060; J2405; J7030; J7121; J7512; Q9967; U0003